=== PATIENT | male | born 1995 | race Asian ===

== ENCOUNTER 2018-04-05 22:31 | Emergency (ER) | payer SELFPAY ==
[~2018-04-05] VITALS: Ht 167.6 cm; Wt 71.2 kg
[2018-04-05 22:33] VITALS: BP 112/56
[2018-04-05] MEDS ORDERED: DIPH,PERTUSS(ACELL),TET VAC/PF 0.5 ML IM-VACC ONE (23:02)
[2018-04-05] MEDS ORDERED: BUPIVACAINE 0.25% ONE (23:05)
[2018-04-05] MEDS ORDERED: LIDOCAINE-MPF 2%, 2ML ONE (23:05)
[2018-04-05] MEDS ORDERED: MICROFIBRILLAR COLLAGEN 1 GM TP ONE ×2 (23:30→23:32)
[2018-04-06] MEDS ORDERED: DIPH,PERTUSS(ACELL),TET VAC/PF 0.5 ML IM-VACC ONE (00:30)
[2018-04-06] MEDS ORDERED: BUPIVACAINE 0.25% INFIL ONE (00:30)
[2018-04-06] MEDS ORDERED: LIDOCAINE-MPF 1%, 5ML INFIL ONE (00:30)
== END 2018-04-06 00:30 | disposition home or self-care (01) ==
LOC: ED 23:52
DX: S61.210A Laceration without foreign body of right index finger without damage to nail, initial encounter (principal); W26.8XXA Contact with other sharp object(s), not elsewhere classified, initial encounter; Y93.89 Activity, other specified; Y92.098 Other place in other non-institutional residence as the place of occurrence of the external cause; Y99.8 Other external cause status
CPT/HCPCS: 12042; 73140; 90471; 90715; 99284; J3490